=== PATIENT | female | born 1980 | race Caucasian/White ===

== ENCOUNTER 2017-01-15 05:34 | Emergency (ER) | payer BC ==
[2017-01-15] MEDS ORDERED: ONDANSETRON HCL IV 4 MG/2 ML VIAL IV ONE (05:39)
[2017-01-15] MEDS ORDERED: 0.9 % SODIUM CHLORIDE 1,000 ML BAG IV ONE (05:39)
[2017-01-15] MEDS ORDERED: MORPHINE SULFATE 5 MG/ML PFS IVP ONE (05:40)
[2017-01-15] MEDS ORDERED: ACETAMINOPHEN 1,000 MG/100 ML BTL IVPB ONE (05:46)
[2017-01-15] MEDS ORDERED: PANTOPRAZOLE SODIUM 40 MG TABLET PO ONE (05:46)
--- NOTE | 2017-01-15 05:47 | Emergency Department Record ---
History of Present Illness <Mando Campos - Last Filed: 01/15/17 07:56> - General Source: Patient, Family Mode of Arrival: Ambulatory Limitations: No limitations - History of Present Illness Initial Comments: 36 yo female presents with abdominal pain. The patient states she developed abdominal pain about 11 pm last night at work. The pain started in the mid abdomen. Over the night the pain has continued to increase. She has some nausea without vomiting. No diarrhea. She feels some pain to the back. The patient denies any recent similar pain. No burping or belching. No pain below the umbilicus. She states the pain is all above the umbilicus but difficult to localize. She rarely takes any over the counter medication for occasionally headache. MD Complaint: Abdominal pain -: Hour(s) (7) Location: Epigastric, LUQ, RUQ Radiation: Back, LUQ, RUQ Migration to: Epigastric, LUQ, RUQ Severity: Severe Quality: Aching Consistency: Constant Improves With: Nothing Worsens With: Nothing Associated Symptoms: Anorexia - Related Data Patient : No <JARENNORI - Last Filed: 01/15/17 09:05> - General Chief Complaint: Abdominal Pain Stated Complaint: ABDOMINAL PAIN Time Seen by Provider: 01/15/17 05:39 - Related Data Previous Rx's Medication Instructions Recorded Sucralfate [Carafate] 1 gm PO QID #28 tablet 01/15/17 Allergies Allergy/AdvReac Type Severity Reaction Status Date / Time morphine Allergy DIFFICULTY Verified 01/15/17 05:50 BREATHING Physical Exam - General General Appearance: Alert, Oriented x3, Cooperative, No acute distress, Anxious (due to pain) Limitations: No limitations - Head Head exam: Atraumatic, Normocephalic, Normal inspection - Eye Eye exam: Normal appearance. negative: Conjunctival injection, Periorbital swelling, Scleral icterus - ENT ENT exam: Normal exam, Mucous membranes moist Ear exam: Normal external inspection Nasal Exam: Normal inspection Mouth exam: Normal external inspection - Neck Neck exam: Normal inspection, Full ROM. negative: Tenderness - Respiratory Respiratory exam: Normal lung sounds bilaterally. negative: Respiratory distress - Cardiovascular Cardiovascular Exam: Regular rate, Normal rhythm, Normal heart sounds - GI/Abdominal GI/Abdominal exam: Soft, Guarding, Tenderness (RUQ, LUQ, epigastric) - Rectal Rectal exam: Deferred - exam: Deferred - Extremities Extremities exam: Normal inspection. negative: Tenderness - Back Back exam: Reports: Normal inspection. Denies: CVA tenderness (R), CVA tenderness (L) - Neurological Neurological exam: Alert, Normal gait, Oriented X3 - Psychiatric Psychiatric exam: Normal affect, Normal mood - Skin Skin exam: Dry, Intact, Normal color, Warm <NORI EASTMAN - Last Filed: 01/15/17 09:05> Course Vital Signs 01/15/17 01/15/17 01/15/17 05:40 06:23 07:22 Temperature 98 F 97.9 F Pulse Rate 90 Pulse Rate [ 86 99 H Pulse Ox Probe] Respiratory 22 24 16 Rate Blood Pressure 129/77 Blood Pressure 99/57 93/56 [Left Arm] Pulse Ox 97 98 99 - Reevaluation(s) Reevaluation #2: The patient is doing much better at this time. Her pain is down to a 2 or 3 and she is up walking with minimal discomfort. On exam her abdomen is very soft with only minimal upper abdominal tenderness. I did explain to her that her CT scan was normal. She is to be discharged on Carafate and F/U with a PCP next week for recheck. 01/15/17 07:43 Reevaluation #3: The patient is doing well at this time. Her pain is much improved and she is ready for home. 01/15/17 07:55 <Mando Campos - Last Filed: 01/15/17 07:56> - Reevaluation(s) Reevaluation #1: 01/15/17 05:50 No prior records in the EMR Vitals reviewed 01/15/17 06:00 The patient reports an allergy to morphine. She has had Dilaudid in the past without any difficulty. 01/15/17 06:11 The CBC was reviewed. No acute changes. The UA is normal. HCG is negative 01/15/17 06:22 No acute changes on the CMP or Lipase The Lactic Acid is normal. <NORI EASTMAN - Last Filed: 01/15/17 09:05> Medical Decision Making - Data Complexity MDM Data: X-Ray Ordered and/or Reviewed - Lab Data Result diagrams: 01/15/17 05:40 01/15/17 05:40 Lab Results 01/15/17 01/15/17 01/15/17 Range/Units 05:40 05:40 05:40 WBC 6.8 (4.2-12.2) K/uL RBC 4.55 (3.80-5.40) M/uL Hgb 14.7 (11.6-16.0) gm/dl Hct 43.2 (35.0-47.0) % MCV 94.9 (81-97) fl MCH 32.3 (27-33) pg MCHC 34.0 (32-36) g/dl RDW 12.6 (11.5-14.5) % Plt Count 219 (130-400) K/uL MPV 10.1 (7.4-10.4) fl Gran % 59.8 (47-80) % Lymphocytes % 24.1 (16-45) % Monocytes % 11.4 H (0-9) % Eosinophils % 4.1 (0-6) % Basophils % 0.6 (0-6) % Sodium 140 (136-145) mmol/L Potassium 3.6 (3.4-4.5) mmol/L Chloride 99 (98-107) mmol/L Carbon Dioxide 29.0 (22-29) mmol/L Anion Gap 12.0 (7-16) BUN 14 (6-20) mg/dL Creatinine 0.6 (0.5-0.9) mg/dL Estimated GFR > 60 mL/min Random Glucose 92 (74-109) mg/dL Lactic Acid 0.8 (0.5-2.2) mmol/L Calcium 9.4 (8.6-10.0) mg/dL Total Bilirubin 0.40 (0.2-1.0) mg/dL AST 26 (10.0-35.0) U/L ALT 24 (<33) U/L Alkaline Phosphatase 53 (35-104) U/L Total Protein 7.2 (6.6-8.7) g/dL Albumin 4.5 (4.0-5.0) g/dL Globulin 2.7 (1.4-4.8) gm/dL Albumin/Globulin Ratio 1.7 (1.1-1.8) Lipase 24 (13-60) U/L Urine Color Urine Appearance Urine pH (5.0-8.0) Ur Specific [place] (1.002-1.030) Urine Protein (NEGATIVE) Urine Glucose (UA) (NEGATIVE) Urine Ketones (NEGATIVE) Urine Blood (NEGATIVE) Urine Nitrite (NEGATIVE) Urine Bilirubin (NEGATIVE) Urine Urobilinogen (0.20 - 1.00) E.U./dL Ur Leukocyte Esterase (NEGATIVE) Urine RBC (NONE SEEN) Urine WBC (0-2/hpf) U Non-Squamous Epi Cells /hpf Urine Bacteria Urine HCG, Qual (NEGATIVE) 01/15/17 Range/Units 05:55 WBC (4.2-12.2) K/uL RBC (3.80-5.40) M/uL Hgb (11.6-16.0) gm/dl Hct (35.0-47.0) % MCV (81-97) fl MCH (27-33) pg MCHC (32-36) g/dl RDW (11.5-14.5) % Plt Count (130-400) K/uL MPV (7.4-10.4) fl Gran % (47-80) % Lymphocytes % (16-45) % Monocytes % (0-9) % Eosinophils % (0-6) % Basophils % (0-6) % Sodium (136-145) mmol/L Potassium (3.4-4.5) mmol/L Chloride (98-107) mmol/L Carbon Dioxide (22-29) mmol/L Anion Gap (7-16) BUN (6-20) mg/dL Creatinine (0.5-0.9) mg/dL Estimated GFR mL/min Random Glucose (74-109) mg/dL Lactic Acid (0.5-2.2) mmol/L Calcium (8.6-10.0) mg/dL Total Bilirubin (0.2-1.0) mg/dL AST (10.0-35.0) U/L ALT (<33) U/L Alkaline Phosphatase (35-104) U/L Total Protein (6.6-8.7) g/dL Albumin (4.0-5.0) g/dL Globulin (1.4-4.8) gm/dL Albumin/Globulin Ratio (1.1-1.8) Lipase (13-60) U/L Urine Color Yellow Urine Appearance Clear Urine pH 6.0 (5.0-8.0) Ur Specific [place] 1.015 (1.002-1.030) Urine Protein Negative (NEGATIVE) Urine Glucose (UA) Negative (NEGATIVE) Urine Ketones Negative (NEGATIVE) Urine Blood Trace-i (NEGATIVE) Urine Nitrite Negative (NEGATIVE) Urine Bilirubin Negative (NEGATIVE) Urine Urobilinogen 0.2 (0.20 - 1.00) E.U./dL Ur Leukocyte Esterase Negative (NEGATIVE) Urine RBC 0 - 2 (NONE SEEN) Urine WBC 0 - 2 (0-2/hpf) U Non-Squamous Epi Cells 7 - 10 /hpf Urine Bacteria Few Urine HCG, Qual Negative (NEGATIVE) - Radiology Data Radiology results: Report reviewed (CT: Mild Periportal edema of uncertain significance and etiology. No gallstones or cholecystitis.) <Mando Campos - Last Filed: 01/15/17 07:56> - Lab Data Result diagrams: 01/15/17 05:40 01/15/17 05:40 <NORI EASTMAN - Last Filed: 01/15/17 09:05> Disposition Disposition: Discharge Time of Disposition: 07:47 <Mando Campos - Last Filed: 01/15/17 07:56> <NORI EASTMAN - Last Filed: 01/15/17 09:05> Clinical Impression: Abdominal pain Disposition: Home, Self-Care Condition: (2) Stable Instructions: Abdominal Pain (ED) Additional Instructions: Please use Tylenol for pain and take the Carafate as directed. Please see a PCP next week for recheck and return to the ER for any worsening pain, fever, or vomiting. Please see your PCP for recheck of your mildly enlarged uterus and to have a pelvic US ordered. Please stay away from spicy and fatty foods and alcohol. Prescriptions: Sucralfate [Carafate] 1 gm PO QID #28 tablet Forms: Patient Portal Access Quality - Blood Pressure Screening Does Patient Have Any of the Following: No Blood Pressure Classification: Pre-Hypertensive BP Reading Systolic Measurement: 129 Diastolic Measurement: 77 Screening for High Blood Pressure: < Pre-Hypertensive BP, F/U Documented > [ G8950] <Mando Campos - Last Filed: 01/15/17 07:56> - Quality Measures Quality Measures: N/A - Blood Pressure Screening View Details: Yes Does Patient Have Any of the Following: No Blood Pressure Classification: Normal BP Reading Systolic Measurement: 94 Diastolic Measurement: 71 Screening for High Blood Pressure: < Normal BP, F/U Not Required > [G8783] <NORI EASTMAN - Last Filed: 01/15/17 09:05>
[2017-01-15] MEDS ORDERED: PANTOPRAZOLE SODIUM IV 40 MG VIAL IVP ONE (05:49)
[2017-01-15 05:52] LABS: BASO % 0.6 % (0-6); EOS % 4.1 % (0-6); GRAN % 59.8 % (47-80); HEMATOCRIT 43.2 % (35.0-47.0); HEMOGLOBIN 14.7 gm/dl (11.6-16.0); LYMPH % 24.1 % (16-45); MEAN CELL VOLUME 94.9 fl (81-97); MEAN CORPUSCULAR HEMOGLOBIN 32.3 pg (27-33); MEAN PLATELET VOLUME 10.1 fl (7.4-10.4); MONO % 11.4 % (0-9); PLATELET COUNT 219 K/uL (130-400); RED BLOOD COUNT 4.55 M/uL (3.80-5.40); RED CELL DISTRIBUTION WIDTH 12.6 % (11.5-14.5); WHITE BLOOD COUNT W/O DIFF 6.8 K/uL (4.2-12.2)
[2017-01-15] MEDS ORDERED: HYDROMORPHONE HCL 1MG/ML **SYRINGE IVP ONE (06:00)
[2017-01-15 06:05] LABS: URINE APPEARANCE CLEAR; URINE BILIRUBIN NEGATIVE (NEGATIVE); URINE BLOOD TRACE-I (NEGATIVE); URINE COLOR YELLOW; URINE GLUCOSE (UA) NEGATIVE (NEGATIVE); URINE KETONE NEGATIVE (NEGATIVE); URINE LEUKOCYTE ESTERASE NEGATIVE (NEGATIVE); URINE NITRITE NEGATIVE (NEGATIVE); URINE PROTEIN NEGATIVE (NEGATIVE); URINE UROBILINOGEN 0.2 E.U./dL (0.20 - 1.00)
[2017-01-15 06:05] LABS: BLOOD UREA NITROGEN 14 mg/dL (6-20); CREATININE 0.6 mg/dL (0.5-0.9); EST GLOMERULAR FILTRATION RATE > 60 mL/min
[2017-01-15 06:06] LABS: TOTAL PROTEIN 7.2 g/dL (6.6-8.7)
[2017-01-15 06:07] LABS: HCG,QUALITATIVE URINE NEGATIVE (NEGATIVE)
[2017-01-15 06:08] LABS: GLUCOSE,RANDOM 92 mg/dL (74-109)
[2017-01-15 06:11] LABS: ALB/GLOB RATIO 1.7 (1.1-1.8); ALBUMIN 4.5 g/dL (4.0-5.0); ALKALINE PHOSPHATASE 53 U/L (35-104); ALT/SGPT 24 U/L (<33); AST/SGOT 26 U/L (10.0-35.0); LIPASE 24 U/L (13-60)
[2017-01-15 06:16] LABS: URINE BACTERIA FEW; URINE RBC 0 - 2 (NONE SEEN); URINE WBC 0 - 2 (0-2/hpf)
[2017-01-15] MEDS ORDERED: SUCRALFATE 1 G/10 ML UD PO ONE (07:42)
--- NOTE | 2017-01-15 09:15 | CT SCAN REPORT ---
EXAM: CT OF THE ABDOMEN AND PELVIS WITH CONTRAST HISTORY: RIGHT UPPER QUADRANT ABDOMINAL PAIN FOR ONE DAY. TECHNIQUE: Following oral and intravenous contrast administration, helical CT examination of the abdomen and pelvis was performed including delayed images through the kidneys with 100 ml of Omnipaque 300 utilized. Comparison: None. FINDINGS: The lung bases are clear and there is no pleural or pericardial effusion. The heart is not enlarged. No suspicious focal hepatic lesion is seen. There is, however, nonspecific periportal edema. No gross biliary ductal dilatation is seen and the gallbladder is unremarkable. The pancreas, liver, adrenal glands, and kidneys are normal in appearance. No intraabdominal nor retroperitoneal lymphadenopathy is seen. The vasculature is normal in appearance. The uterus appears mildly prominent in size measuring 12 cm in length x 6 cm AP x 8.3 cm transverse. There is a possible small contour deforming mildly hypodense mass arising from the posterior uterine body measuring 1.6 cm in diameter. This is nonspecific, but likely a small leiomyoma. No other pelvic mass nor lymphadenopathy. Trace free fluid in the cul-de-sac is nonspecific, but likely physiologic. No gross bowel dilatation nor bowel wall thickening. The appendix is visualized and normal in appearance. The abdominal wall is intact. No lytic or blastic bone lesion is seen. Mild posterior disk bulging is suggested at the lower lumbar levels most pronounced at the L4-L5 level where there is borderline central canal stenosis. IMPRESSION: 1. MILD INTRAHEPATIC PERIPORTAL EDEMA. THIS IS NONSPECIFIC. THIS CAN BE SEEN WITH INFLAMMATION. CORRELATION WITH LIVER FUNCTION TESTS IS RECOMMENDED. 2. NO CALCIFIED GALLSTONE, GALLBLADDER WALL THICKENING OR PERICHOLECYSTIC FLUID. 3. THE UTERUS IS MILDLY PROMINENT AND THERE IS A POSSIBLE SMALL CONTOUR DEFORMING MASS ARISING FROM THE POSTERIOR UTERINE BODY SUSPICIOUS FOR LEIOMYOMA. IF CLINICALLY WARRANTED, THIS COULD BE FURTHER EVALUATED WITH PELVIC SONOGRAPHY. 4. NOT MENTIONED ABOVE IS A SMALL FAT FILLED UMBILICAL/PARAUMBILICAL HERNIA APPEARING UNCOMPLICATED. JOB NUMBER: [id number] [facility]
== END 2017-01-15 08:06 | disposition home or self-care (01) ==
LOC: ER 05:34
DX: R10.11 Right upper quadrant pain (principal); R11.0 Nausea
CPT/HCPCS: 74177; 80053; 81001; 81025; 83605; 83690; 85025; 96365; 96375; 99284; C9113; J1170; J2405; J7030